=== PATIENT | female | born 1945 | race Caucasian/White ===

== ENCOUNTER 2017-07-23 11:07 | Emergency (ER) | payer MEDICARE, BC ==
[2017-07-23 11:34] VITALS: BP 150/71
--- NOTE | 2017-07-23 12:31 | UC ---
Throat Pain/Nasal Liang HPI - HPI Summary HPI Summary: NINE DAYS OF NASAL CONGESTION FACIAL PRESSURE ON RIGHT SIDE OF FACE. EAR PRESSURE RIGHT SIDE. FEVER AND CHILLS FOUR DAYS AGO. - History of Current Complaint Chief Complaint: UCRespiratory Stated Complaint: URI Time Seen by Provider: 07/23/17 12:09 Hx Obtained From: Patient Onset/Duration: Sudden Onset, Lasting Weeks, Still Present Severity: Moderate Cough: Nonproductive Associated Signs & Symptoms: Positive: Sinus Discomfort, Nasal Discharge, Fever - Epiglottits Risk Factors Epiglottis Risk Factors: Negative - Allergies/Home Medications Allergies/Adverse Reactions: Allergies Allergy/AdvReac Type Severity Reaction Status Date / Time Bacitracin [From Neosporin] Allergy Rash Verified 07/23/17 11:34 Neomycin [From Neosporin] Allergy Rash Verified 07/23/17 11:34 Polymyxin B [From Neosporin] Allergy Rash Verified 07/23/17 11:34 Home Medications: Home Medications Irbesartan 75 mg PO 07/23/17 [History] LoraTADine TAB(NF) [Claritin 10 MG TAB(NF)] 10 mg PO DAILY 07/23/17 [History Confirmed 07/23/17] PMH/Surg Hx/FS Hx/Imm Hx Previously Healthy: Yes - Surgical History Surgical History: Yes Surgery Procedure, Year, and Place: BX BOTH BREASTS - Family History Known Family History: Negative: Respiratory Disease - Social History Occupation: Retired Lives: With Family Alcohol Use: Daily Substance Use Type: None Smoking Status (MU): Never Smoked Tobacco Review of Systems Constitutional: Fever, Chills Skin: Negative Eyes: Negative ENT: Ear Ache, Nasal Discharge, Sinus Congestion Respiratory: Cough Cardiovascular: Negative Gastrointestinal: Negative Genitourinary: Negative Motor: Negative Neurovascular: Negative Musculoskeletal: Negative Neurological: Negative Psychological: Negative All Other Systems Reviewed And Are Negative: Yes Physical Exam Triage Information Reviewed: Yes Appearance: No Pain Distress, Well-Nourished, Ill-Appearing - MILDLY, Thin Vital Signs: Initial Vital Signs Temp 98.8 F 07/23/17 11:29 Pulse 80 07/23/17 11:29 Resp 18 07/23/17 11:29 BP 150/71 07/23/17 11:29 Pulse Ox 99 07/23/17 11:29 Vital Signs Reviewed: Yes Eye Exam: Normal ENT: Positive: Pharynx normal, Nasal congestion, TM bulging, TM dull Dental Exam: Normal Neck exam: Normal Neck: Positive: Supple, Nontender, No Lymphadenopathy Respiratory Exam: Other - COUGH Respiratory: Positive: Chest non-tender, Lungs clear, Normal breath sounds, No respiratory distress, No accessory muscle use Cardiovascular Exam: Normal Cardiovascular: Positive: RRR, No Murmur, Pulses Normal Abdominal Exam: Normal Musculoskeletal Exam: Normal Musculoskeletal: Positive: Strength Intact, ROM Intact Neurological Exam: Normal Psychological Exam: Normal Skin Exam: Normal Throat Pain/Nasal Course/Dx - Course Course Of Treatment: JUAN ZULETASAURAV BP YESTERDAY WAS 130/80. TODAY IT IS 150 /71, WILL RECHECK LATER AND INFORM PRIMARY CARE PROVIDER THIS WEEK - Differential Dx/Diagnosis Differential Diagnosis/HQI/PQRI: Pharyngitis, Sinusitis, Tonsillitis, URI Provider Diagnoses: SINUSITIS Discharge - Discharge Plan Condition: Stable Disposition: HOME Prescriptions: Amoxicillin/Clavulanate TAB* [Augmentin TAB 875*] 875 mg PO BID #20 tab Patient Education Materials: Sinusitis (ED) Referrals: Cristiana Obrien MD [Primary Care Provider] -
== END 2017-07-23 12:24 | disposition home or self-care (01) ==
LOC: UCEAST 11:07
DX: J32.9 Chronic sinusitis, unspecified (principal); Z88.3 Allergy status to other anti-infective agents
CPT/HCPCS: 99212; G0463

== ENCOUNTER 2018-05-27 01:28 | Emergency (ER) | payer MEDICARE, BC ==
[2018-05-27] MEDS ORDERED: Labetalol IV* 5 MG/ML 20 ML VIAL IV PUSH ONE (02:01)
[2018-05-27 02:20] LABS: ABS Basophils 0 10^3/ul (0-0.2); ABS Eosinophils 0.2 10^3/ul (0-0.6); ABS Lymphocytes 3.4 10^3/ul (1.0-4.8); ABS Monocytes 0.6 10^3/ul (0-0.8); ABS Neutrophils 2.3 10^3/ul (1.5-7.7); ABS Nucleated RBC 0 10^3/ul; Eosinophil % 3.1 % (0-6); Hematocrit 40 % (35-47); Hemoglobin 13.6 g/dl (12.0-16.0); Lymphocyte % 51.2 % (25-47); Mean Corpuscular HGB Conc 34 g/dl (31-36); Mean Corpuscular Hemoglobin 33 pg (27-31); Mean Corpuscular Volume 96 fL (80-97); Mean Platelet Volume 8.1 um3 (7.4-10.4); Nucleated Red Blood Cells % 0.1; Platelet Count 257 10^3/ul (150-450); Red Blood Count 4.15 10^6/ul (4.00-5.40); Red Cell Distribution Width 13 % (10.5-15); White Blood Count 6.5 10^3/ul (3.5-10.8)
[2018-05-27 02:29] LABS: INR 0.95 (0.77-1.02)
[2018-05-27 02:37] LABS: EGFR Non-African American 64.2 (>60)
--- NOTE | 2018-05-27 03:31 | ED ---
Erin Garcia Jade, scribed for Yahaira Mckee MD on 05/27/18 at 0158 . Palpitations / Dysrhythmia - HPI Summary HPI Summary: Pt is a 73 y/o female who presents to the ED c/o palpitations. She states starting at 23:15 last night, she began to have a fast and pounding heartbeat while she was sitting. The episode lasted for approximately 2 hours, and was constant throughout the episode. Pt denies any CP, sweating, or dizziness. She has a PMHx of intermittent PVCs, but states this felt different. At home, her blood pressure was 157/92. Pt states she drinks minimal caffeine and has 1 beer daily. She currently takes Irbesartan. - History of Current Complaint Chief Complaint: EDDysrhythmPalp Time Seen by Provider: 05/27/18 01:43 Hx Obtained From: Patient Onset/Duration: Sudden Onset, Lasting Hours - 23:15, Resolved Timing: Intermittent Episodes Lasting: - 2 hours Severity Currently: None Character: Fast, Pounding Aggravating: Nothing Alleviating: Nothing Associated Signs & Symptoms: Negative - Allergy/Home Medications Allergies/Adverse Reactions: Allergies Allergy/AdvReac Type Severity Reaction Status Date / Time bacitracin AdvReac Rash Verified 05/27/18 01:34 [From Neosporin ([id number])] neomycin AdvReac Rash Verified 05/27/18 01:34 [From Neosporin ([id number])] polymyxin B AdvReac Rash Verified 05/27/18 01:34 [From Neosporin ([id number])] PMH/Surg Hx/FS Hx/Imm Hx Cardiovascular History: Reports: Hx Hypertension, Other Cardiovascular Problems/ Disorders - Intermittent PVCs Musculoskeletal History: Denies: Hx Osteoporosis - Cancer History Hx Chemotherapy: No Hx Radiation Therapy: No - Surgical History Surgery Procedure, Year, and Place: BX BOTH BREASTS Infectious Disease History: No Infectious Disease History: Denies: Traveled Outside the [place] in Last 30 Days - Family History Known Family History: Negative: Respiratory Disease - Social History Alcohol Use: Daily Alcohol Amount: 1 beer Substance Use Type: Reports: None Smoking Status (MU): Never Smoked Tobacco Review of Systems Negative: Skin Diaphoresis Positive: Palpitations. Negative: Chest Pain Neurological: Negative - Dizziness All Other Systems Reviewed And Are Negative: Yes Physical Exam - Summary Physical Exam Summary: VITAL SIGNS: Reviewed. GENERAL: Patient is a well-developed and nourished FEMALE who is lying comfortable in the stretcher. Patient is not in any acute respiratory distress. HEAD AND FACE: No signs of trauma. No ecchymosis, hematomas or skull depressions. No sinus tenderness. EYES: PERRLA, EOMI x 2, No injected conjunctiva, no nystagmus. EARS: Hearing grossly intact. Ear canals and tympanic membranes are within normal limits. MOUTH: Oropharynx within normal limits. NECK: Supple, trachea is midline, no adenopathy, no JVD, no carotid bruit, no c- spine tenderness, neck with full ROM. CHEST: Symmetric, no tenderness at palpation LUNGS: Clear to auscultation bilaterally. No wheezing or crackles. CVS: Regular rate and rhythm, S1 and S2 present, no murmurs or gallops appreciated. ABDOMEN: Soft, non-tender. No signs of distention. No rebound no guarding, and no masses palpated. Bowel sounds are normal. EXTREMITIES: FROM in all major joints, no edema, no cyanosis or clubbing. NEURO: Alert and oriented x 3. No acute neurological deficits. Speech is normal and follows commands. SKIN: Dry and warm Triage Information Reviewed: Yes Vital Signs On Initial Exam: Initial Vitals Temp Pulse Resp BP Pulse Ox 97.1 F 75 15 198/138 99 05/27/18 01:30 05/27/18 01:30 05/27/18 01:30 05/27/18 01:30 05/27/18 01:30 Vital Signs Reviewed: Yes Diagnostics - Vital Signs Vital Signs Temp Pulse Resp BP Pulse Ox 05/27/18 01:30 97.1 F 75 15 198/138 99 - Laboratory Result Diagrams: 05/27/18 02:10 05/27/18 02:10 Lab Statement: Any lab studies that have been ordered have been reviewed, and results considered in the medical decision making process. - EKG 01:42 Cardiac Rate: NL - 65 bpm EKG Interpretation: PAC. Normal axis. Normal intervals. Course/Dx - Course Course Of Treatment: Pt is a 73 y/o female c/o palpitations starting at 23:15 last night. Pt denies any CP, sweating, or dizziness. She has a PMHx of intermittent PVCs, but states this felt different. A physical exam was normal. An EKG revealed normal rate of 65 bpm, PAC, normal axis, normal intervals. Pt has been having normal rate and rhythm in ER, and has been asymptomatic. Pt had no dizziness even at home when HR was fast. She is reluctant to be admitted, and would rather go home. Final dx is palpitations. Pt is discharged and to follow up with her PCP tomorrow, and was advised to get a Holter monitor. She is agreeable with this plan. - Diagnoses Provider Diagnoses: Palpitations Discharge - Sign-Out/Discharge Documenting (check all that apply): Discharge/Admit/Transfer - Discharge - Discharge Plan Condition: Stable Disposition: HOME Patient Education Materials: Heart Palpitations (ED) Referrals: Cristiana Obrien MD [Primary Care Provider] - 1 Day Additional Instructions: RETURN TO THE EMERGENCY DEPARTMENT FOR CHANGING OR WORSENING SYMPTOMS. Please get a Holter monitor. The documentation as recorded by the Erin tsang Jade accurately reflects the service I personally performed and the decisions made by me, Yahaira Mckee MD.
[2018-05-27 03:34] VITALS: BP 115/66
--- NOTE | 2018-05-27 07:33 | RAD ---
INDICATION: Chest pain. Palpitations. COMPARISON: May 17, 2012 TECHNIQUE: An AP portable view obtained at 0200 hours is submitted. FINDINGS: Bones/Soft Tissues: There are no acute bony findings. Cardiomediastinal: The cardiomediastinal silhouette is normal. Lungs: There are no infiltrates. Pleura: There are no pleural effusions. Other: None IMPRESSION: NO ACTIVE DISEASE.
== END 2018-05-27 03:35 | disposition home or self-care (01) ==
LOC: ED 01:28
DX: R00.2 Palpitations (principal); I49.1 Atrial premature depolarization; I10 Essential (primary) hypertension; Z79.899 Other long term (current) drug therapy; Z88.3 Allergy status to other anti-infective agents
CPT/HCPCS: 36415; 71045; 80053; 83735; 83880; 84443; 84484; 85025; 85610; 85730; 93005; 96374; 99282